=== PATIENT | male | born 1955 | race Caucasian/White ===

== ENCOUNTER 2017-10-22 06:17 | Observation (INO) | payer BC ==
[2017-10-15 15:26] LABS: BASOPHILS # (AUTO) 0.1 X10'3 (0-0.2); BASOPHILS % (AUTO) 0.8 % (0-1); EOSINOPHILS # (AUTO) 0.4 X10'3 (0-0.9); EOSINOPHILS % (AUTO) 4.5 % (0-6); LYMPHOCYTES # (AUTO) 2.9 X10'3 (1.1-4.8); LYMPHOCYTES % (AUTO) 33.4 % (21-51); MEAN CORPUSCULAR HEMOGLOBIN 31.8 PG (27.0-31.0); MEAN CORPUSCULAR HGB CONC 35.1 % (33.0-36.5); MEAN CORPUSCULAR VOLUME 90.6 FL (78-98); MEAN PLATELET VOLUME 8.6 FL (7.4-10.4); MONOCYTES # (AUTO) 0.7 X10'3 (0-0.9); MONOCYTES % (AUTO) 7.6 % (2-12); NEUTROPHILS # (AUTO) 4.6 X10'3 (1.8-7.7); NEUTROPHILS % (AUTO) 53.7 % (42-75); PRE OP HEMATOCRIT 42.1 % (42.0-52.0); PRE OP HEMOGLOBIN 14.8 g/dL (14.0-17.9); PRE OP PLATELET COUNT 258 X10'3 (140-440); RED BLOOD COUNT 4.64 X10'6 (4.70-6.10); RED CELL DISTRIBUTION WIDTH 13.8 % (11.5-14.5)
[2017-10-15 15:39] LABS: ALBUMIN/GLOBULIN RATIO 1.2 (1.1-1.5); ALKALINE PHOSPHATASE 56 IU/L (46-116); BLOOD UREA NITROGEN 15 MG/DL (7-18); CALCIUM 9.2 MG/DL (8.5-10.1); CHLORIDE 108 MMOL/L (99-107); PRE OP ALT 28 U/L (30-65); PRE OP ANION GAP 8 (8-16); PRE OP AST 26 U/L (10-37); PRE OP BILIRUB, TOTAL 0.3 MG/DL (0.0-1.0); PRE OP GLUCOSE 93 MG/DL (70-104); PRE OP SODIUM 144 MMOL/L (135-145); TOTAL CARBON DIOXIDE 27.8 MMOL/L (24-32); TOTAL PROTEIN 7.4 G/DL (6.4-8.2); eGFR 76 ML/MIN
[2017-10-15 15:40] LABS: PRE OP POTASSIUM 4.3 MMOL/L (3.4-5.1)
[2017-10-22] VITALS (17 sets, daily range): BP systolic 104–128; BP diastolic 67–90
[~2017-10-22] VITALS: Ht 170.2 cm; Wt 91.1 kg
[~2017-10-22 06:17] MED LIST: ASPI-611 PO; FENO145T19 PO; MELO-102 PO; METO-384 PO; PANT-47 PO; PARO20TA6 PO; acetaminophen 325mg tablet PO ONE; cefazolin/dext.iso 2gm/50ml 50 ML IV ONE; famotidine 20mg tablet PO ONE; gabapentin 300mg capsule PO ONE; metoclopramide 5 mg/ml inj IV ONE; oxyCODONE SR 10mg (sust. release) tab PO ONE; tranexamic acid inj. 1,000 MG in normal saline 100ml IV soln 90 ML IV ONE; vancomycin inj 1,500 MG in normal saline 300ml IV soln IV ONE
[2017-10-22] MEDS ORDERED: ketorolac trometh. 30mg/ml inj. ONE (07:53)
[2017-10-22] MEDS ORDERED: ceFAZolin 1000mg inj ONE (07:54)
[2017-10-22] MEDS ORDERED: ROPIVAcaine 0.5% (5mg/ml) 30ml vial ONE ×2 (07:54→10:55)
[2017-10-22] MEDS ORDERED: ePHEDrine 50MG/ML INJ. ONE (08:02)
[2017-10-22] MEDS ORDERED: LIDOcaine 1%/PF (10mg/ml) 5ml vial ONE (08:02)
[2017-10-22] MEDS ORDERED: phenylephrine 10mg/ml inj IV ONE (08:02)
[2017-10-22] MEDS ORDERED: LIDOcaine 1% (10mg/ml) 2ml vial ONE (08:02)
[2017-10-22] MEDS ORDERED: epiNEPHrine 1 mg/ml inj ONE (08:04)
[2017-10-22] MEDS ORDERED: fentaNYL/PF 50MCG/1 ML 2ML syringe ONE (08:05)
[2017-10-22] MEDS ORDERED: midazolam 2 mg/2 ml injection ONE (08:06)
[2017-10-22] MEDS ORDERED: MORPHINE SULFATE/PF 0.5 MG/ML 10ML AMPUL ONE ×2 (08:17→09:50)
[2017-10-22] MEDS ORDERED: desflurane 240ml liquid inh. IH ONE (08:40)
[2017-10-22] MEDS ORDERED: vancomycin 1,000mg inj ONE (10:17)
[2017-10-22] MEDS: potassium cl 20mEq in 1/2 NS 1,000 ML IV SCH ×2 (10:36→18:36)
[2017-10-22] MEDS ORDERED: acetaminophen 325mg tablet PO PRN (10:40)
[2017-10-22] MEDS ORDERED: magnesium hydroxide 30ml (MOM) UD suspension PO PRN (10:40)
[2017-10-22] MEDS ORDERED: bisacodyl 10mg suppository rectal RC PRN (10:40)
[2017-10-22] MEDS ORDERED: oxyCODONE IR 5mg (immed. release) tablet PO PRN (10:40)
[2017-10-22] MEDS ORDERED: diphenhydrAMINE 25mg capsule PO PRN ×2 (10:40)
[2017-10-22] MEDS ORDERED: ondansetron/PF 4mg/2ml inj IV PRN (10:40)
[2017-10-22] MEDS ORDERED: tranexamic acid inj. 1,000 MG in normal saline 100ml IV soln 100 ML IV ONE (13:00)
[2017-10-22] MEDS: gabapentin 300mg capsule PO SCH ×2 (14:38→23:23)
[2017-10-22] MEDS: acetaminophen 325mg tablet PO SCH ×2 (14:38→20:10)
[2017-10-22] MEDS: oxyCODONE IR 5mg (immed. release) tablet PO PRN ×3 (14:40→23:23)
[2017-10-22] MEDS: cefazolin 1gm/NS 100mL 100 ML IV SCH (16:45)
[2017-10-22] MEDS ORDERED: vancomycin/NS 1 GM ADD-VANTAGE 250 ML IV SCH (20:00)
[2017-10-22] MEDS: celeCOXIB 100mg capsule PO SCH (20:09)
[2017-10-22] MEDS ORDERED: sennosides 8.6mg tablet PO SCH (21:00)
[2017-10-23] MEDS: cefazolin 1gm/NS 100mL 100 ML IV SCH (00:16)
[2017-10-23] MEDS: potassium cl 20mEq in 1/2 NS 1,000 ML IV SCH (00:17)
[2017-10-23 02:00] VITALS: BP 107/73
[2017-10-23] MEDS: acetaminophen 325mg tablet PO SCH ×2 (03:12→08:46)
[2017-10-23] MEDS: oxyCODONE IR 5mg (immed. release) tablet PO PRN ×2 (03:12→07:50)
[2017-10-23 05:00] VITALS: BP 123/77
[2017-10-23] MEDS ORDERED: pantoprazole 40mg Tablet.DR PO SCH (07:30)
[2017-10-23] MEDS ORDERED: PARoxetine 20mg tablet PO SCH (08:00)
[2017-10-23] MEDS ORDERED: metoprolol succinate 25mg (24-HOUR) SR. Tablet PO SCH (08:00)
[2017-10-23] MEDS: gabapentin 300mg capsule PO SCH ×2 (08:00→08:48)
[2017-10-23] MEDS ORDERED: fenofibrate 145mg tablet PO SCH (08:30)
[2017-10-23] MEDS: celeCOXIB 100mg capsule PO SCH (08:44)
[2017-10-23] MEDS ORDERED: enoxaparin 40mg/0.4ml syringe SQ SCH (10:00)
[2017-10-23 10:12] VITALS: BP 124/78
[2017-10-24] MEDS ORDERED: acetaminophen 325mg tablet PO PRN (10:40)
== END 2017-10-23 10:45 | disposition home or self-care (01) ==
LOC: INTOOBSV 06:17 → PAS IN 06:17 → UNDOADMOB 06:17 → EDSTATUS 08:30 → PAS IN 10:36 → ORTHO 4S 11:58
PROVIDERS: ADMIT Orthopaedic Surgery; ATTEND Orthopaedic Surgery
DX: M17.11 Unilateral primary osteoarthritis, right knee (principal); E78.5 Hyperlipidemia, unspecified; G47.30 Sleep apnea, unspecified; F32.9 Major depressive disorder, single episode, unspecified; K21.9 Gastro-esophageal reflux disease without esophagitis
CPT/HCPCS: 27446; 36415; 80053; 85025; 87070; 93005; 96365; 96366; 96367; 96372; 96375; 97110; 97116; 97161; 97530; A6255; C1713; C1758; C1776; C9250; G0378; J0171; J0690; J1650; J1885; J2001; J2250; J2274; J2370; J2765; J2795; J3010; J3370; J3490; J7030; J7120; S2900; A7000

== ENCOUNTER 2021-01-24 05:55 | Day surgery (SDC) | payer BC ==
[2021-01-17 15:47] LABS: CLARITY,URINE CLEAR (Clear); GLUCOSE, URINE NEGATIVE (Neg); KETONES,URINE NEGATIVE (Neg); LEUKOCYTE ESTERASE ,URINE NEGATIVE (Neg); NITRITES, URINE NEGATIVE (Neg); OCCULT BLOOD,URINE NEGATIVE (Neg); PROTEIN,URINE NEGATIVE (Neg); UROBILINOGEN,URINE 0.2 E.U/dL (0.2-1.0)
[2021-01-17 15:51] LABS: COLOR,URINE DARK YELLOW (Yellow); UA COLLECTION TYPE CLN CATCH MIDSTREAM
[2021-01-17 16:23] LABS: BASOPHILS # (AUTO) 0.1 X10'3 (0-0.2); BASOPHILS % (AUTO) 0.8 % (0-1); EOSINOPHILS # (AUTO) 0.4 X10'3 (0-0.9); EOSINOPHILS % (AUTO) 4.9 % (0-6); LYMPHOCYTES # (AUTO) 2.5 X10'3 (1.1-4.8); LYMPHOCYTES % (AUTO) 34.3 % (21-51); MEAN CORPUSCULAR HEMOGLOBIN 31.7 PG (27.0-31.0); MEAN CORPUSCULAR HGB CONC 33.4 g/dL (33.0-36.5); MEAN CORPUSCULAR VOLUME 94.9 FL (78-98); MEAN PLATELET VOLUME 8.9 FL (7.4-10.4); MONOCYTES # (AUTO) 0.7 X10'3 (0-0.9); NEUTROPHILS # (AUTO) 3.6 X10'3 (1.8-7.7); PRE OP HEMATOCRIT 43.3 % (42.0-52.0); PRE OP HEMOGLOBIN 14.4 g/dL (14.0-17.9); PRE OP PLATELET COUNT 290 X10'3 (140-440); RED BLOOD COUNT 4.56 X10'6 (4.70-6.10); RED CELL DISTRIBUTION WIDTH 14.3 % (11.5-14.5)
[2021-01-17 16:33] LABS: ALBUMIN 3.8 G/DL (3.4-5.0); ALBUMIN/GLOBULIN RATIO 1.1 (1.1-1.5); ALKALINE PHOSPHATASE 80 IU/L (46-116); BLOOD UREA NITROGEN 19 MG/DL (7-18); BUN/CREATININE RATIO 20.2 (5.4-32.0); CALCIUM 9.1 MG/DL (8.5-10.1); CHLORIDE 105 MMOL/L (99-107); CREATININE 0.94 MG/DL (0.60-1.10); PRE OP ALT 33 U/L (30-65); PRE OP ANION GAP 12 (8-16); PRE OP AST 24 U/L (10-37); PRE OP BILIRUB, TOTAL 0.4 MG/DL (0.0-1.0); PRE OP GLUCOSE 76 MG/DL (70-104); PRE OP POTASSIUM 3.9 MMOL/L (3.4-5.1); PRE OP SODIUM 143 MMOL/L (135-145); TOTAL CARBON DIOXIDE 26.2 MMOL/L (24-32); TOTAL PROTEIN 7.4 G/DL (6.4-8.2); eGFR 81 ML/MIN
[~2021-01-24] VITALS: Ht 170.2 cm; Wt 87.0 kg
[2021-01-24] VITALS (9 sets, daily range): BP systolic 99–133; BP diastolic 65–91
[~2021-01-24 05:55] MED LIST changes: +ASPI-1265 PO; -ASPI-611 PO; +ATOR10TA PO; +DOCUMENT DATE & TIME OF BETA-BLOCKER PO ONE; -FENO145T19 PO; -acetaminophen 325mg tablet PO ONE; +cefazolin/dext.iso 2gm/100ml IV ONE; -cefazolin/dext.iso 2gm/50ml 50 ML IV ONE; -gabapentin 300mg capsule PO ONE; -metoclopramide 5 mg/ml inj IV ONE; -oxyCODONE SR 10mg (sust. release) tab PO ONE; +ringers solution, lacted 1,000 ML IV SCH; -tranexamic acid inj. 1,000 MG in normal saline 100ml IV soln 90 ML IV ONE; -vancomycin inj 1,500 MG in normal saline 300ml IV soln IV ONE
[2021-01-24] MEDS ORDERED: LIDOcaine 1% (10mg/ml) 2ml vial ONE (06:46)
[2021-01-24] MEDS ORDERED: albuterol 2.5 MG/3 ML nebule NEB ONE (07:10)
[2021-01-24] MEDS ORDERED: BUPIVAcaine/PF 2.5mg/ml (0.25%) 10ml vial ONE (08:42)
[2021-01-24] MEDS ORDERED: fentaNYL/PF 50MCG/1 ML 2ML syringe ONE ×2 (09:03→10:06)
[2021-01-24] MEDS ORDERED: midazolam 1 mg/ML 2ml injection ONE (09:03)
[2021-01-24] MEDS ORDERED: rocuronium 10mg/ml inj IV ONE (09:05)
[2021-01-24] MEDS ORDERED: LIDOcaine 2% (20mg/ml) 5ml vial ONE (09:05)
[2021-01-24] MEDS ORDERED: propofol inj 20 ML IV ONE (09:05)
[2021-01-24] MEDS ORDERED: meperidine/PF 25mg/ml syringe IV PRN ×2 (09:35)
[2021-01-24] MEDS ORDERED: morphine 4 MG/ML inj SYRINge IV PRN (09:35)
[2021-01-24] MEDS ORDERED: morphine 2 MG/ML inj. syringe IV PRN (09:35)
[2021-01-24] MEDS ORDERED: ondansetron/PF 4mg/2ml inj IV PRN (09:35)
[2021-01-24] MEDS ORDERED: ringers solution, lacted 1,000 ML IV SCH (09:35)
[2021-01-24] MEDS ORDERED: proCHLORperazine 10 MG/2 ml inj IV PRN (09:35)
[2021-01-24] MEDS ORDERED: dexamethasone sod phosphate 10mg/ml inj ONE (09:39)
[2021-01-24] MEDS ORDERED: neostigmine methylsulfate 1 MG/ML 10ml vial ONE (09:39)
[2021-01-24] MEDS ORDERED: ondansetron/PF 4mg/2ml inj ONE (09:39)
[2021-01-24] MEDS ORDERED: glycopyrrolate 0.2mg/ml inj ONE (09:39)
[2021-01-24] MEDS ORDERED: acetaminophen 1000 MG/100ml vial IV ONE (09:39)
[2021-01-24] MEDS ORDERED: ePHEDrine 50MG/ML INJ. ONE (09:39)
[2021-01-24] MEDS ORDERED: sevoflurane 250ml liquid IH ONE (09:39)
--- NOTE | 2021-01-24 10:50 | NUR ---
Received from OR via [facility], accompanied by Anesthesiologist Junior and report given by Anesthesiolgist. VS WNL, 200G IVF LR at 100cc/hr. Mask to 10L sats 98%. Lap sites with dermabond open to air all CDI except one to lateral left abdomen slighlty oozy, bandiad applied. Pt responsive but not yet fully awake, claims no pain.
[2021-01-24] MEDS: meperidine/PF 25mg/ml syringe IV PRN ×2 (11:19→11:29)
[2021-01-24] MEDS ORDERED: HYDROcodone/acetaminophen 10/325mg tab PO ONE (11:30)
--- NOTE | 2021-01-24 12:10 | NUR ---
Pt discharged to vehicle by wheelchair without incident, at bedside. IV DC'd and lap sites remain CDI. Belongings returned to patient, and patient verbalized understanding of all DC instructions. Pain tolerable at 3/10 states tolerable. Call was made to Dr Dooley's office to request meds be called in to [facility] in [place] because [facility] in [place]. Confirmed and relayed to family.
== END 2021-01-24 12:10 | disposition home or self-care (01) ==
LOC: PAS 05:55
PROVIDERS: ATTEND Surgery
DX: K42.0 Umbilical hernia with obstruction, without gangrene (principal); I10 Essential (primary) hypertension; K21.9 Gastro-esophageal reflux disease without esophagitis; E78.5 Hyperlipidemia, unspecified; F43.23 Adjustment disorder with mixed anxiety and depressed mood; G47.33 Obstructive sleep apnea (adult) (pediatric); M19.90 Unspecified osteoarthritis, unspecified site; F17.210 Nicotine dependence, cigarettes, uncomplicated; E66.9 Obesity, unspecified; Z68.30 Body mass index [BMI] 30.0-30.9, adult; Z98.890 Other specified postprocedural states; Z79.899 Other long term (current) drug therapy; Z96.659 Presence of unspecified artificial knee joint; Z88.5 Allergy status to narcotic agent; Z83.3 Family history of diabetes mellitus
CPT/HCPCS: 36415; 49653; 71046; 80053; 81003; 82948; 85025; 93005; 94640; C1758; C1781; J0131; J1100; J2001; J2175; J2250; J2405; J2704; J2710; J3010; J3490; S2900; A4215; A4618; J7120

== ENCOUNTER 2021-02-02 12:01 | Emergency (ER) | payer BC, OTHER ==
[~2021-02-02] VITALS: Ht 170.2 cm; Wt 72.8 kg
[~2021-02-02 12:01] MED LIST changes: -DOCUMENT DATE & TIME OF BETA-BLOCKER PO ONE; -cefazolin/dext.iso 2gm/100ml IV ONE; -famotidine 20mg tablet PO ONE; -ringers solution, lacted 1,000 ML IV SCH
--- NOTE | 2021-02-02 12:08 | NUR ---
PT FOUND IN LOBBY ON THE GROUND YELLING, PT PUT IN W/C. CN MADE AWARE.
[2021-02-02] MEDS ORDERED: ondansetron/PF 4mg/2ml inj IV ONE (12:50)
[2021-02-02] MEDS ORDERED: pantoprazole 40 MG vial IV ONE (12:50)
[2021-02-02] MEDS ORDERED: normal saline 1000ML IV soln IVB ONE ×3 (12:50→15:35)
[2021-02-02 13:23] LABS: BASOPHILS # (AUTO) 0.1 X10'3 (0-0.2); BASOPHILS % (AUTO) 0.6 % (0-1); EOSINOPHILS # (AUTO) 0.1 X10'3 (0-0.9); EOSINOPHILS % (AUTO) 0.7 % (0-6); HEMATOCRIT 43.7 % (42.0-52.0); HEMOGLOBIN 14.7 g/dl (14.0-17.9); LYMPHOCYTES # (AUTO) 1.7 X10'3 (1.1-4.8); LYMPHOCYTES % (AUTO) 11.7 % (21-51); MEAN CORPUSCULAR HEMOGLOBIN 31.5 PG (27.0-31.0); MEAN CORPUSCULAR HGB CONC 33.6 g/dL (33.0-36.5); MEAN CORPUSCULAR VOLUME 93.9 FL (78-98); MEAN PLATELET VOLUME 8.2 FL (7.4-10.4); MONOCYTES # (AUTO) 0.7 X10'3 (0-0.9); MONOCYTES % (AUTO) 4.6 % (2-12); NEUTROPHILS # (AUTO) 11.8 X10'3 (1.8-7.7); NEUTROPHILS % (AUTO) 82.4 % (42-75); PLATELET COUNT 362 X10'3 (140-440); RED BLOOD COUNT 4.66 X10'6 (4.70-6.10); RED CELL DISTRIBUTION WIDTH 14.1 % (11.5-14.5); WHITE BLOOD COUNT 14.3 X10'3 (4.5-11.0)
[2021-02-02 13:35] LABS: ALANINE AMINOTRANSFERASE 35 U/L (12-78); ALBUMIN 3.7 G/DL (3.4-5.0); ALBUMIN/GLOBULIN RATIO 0.9 (1.1-1.5); ALKALINE PHOSPHATASE 118 IU/L (46-116); ANION GAP 18 (8-16); ASPARTATE AMINO TRANSFERASE 21 U/L (10-37); BILIRUBIN,TOTAL 0.6 MG/DL (0.1-1.0); BLOOD UREA NITROGEN 15 MG/DL (7-18); BUN/CREATININE RATIO 14.9 (5.4-32.0); CALCIUM 9.8 MG/DL (8.5-10.1); CHLORIDE 105 MMOL/L (99-107); CREATININE 1.01 MG/DL (0.60-1.10); GLUCOSE 147 MG/DL (70-104); LIPASE 99 U/L (73-393); POTASSIUM 3.8 MMOL/L (3.5-5.1); SODIUM 141 MMOL/L (135-145); TOTAL CARBON DIOXIDE 18.3 MMOL/L (24-32); TOTAL PROTEIN 7.7 G/DL (6.4-8.2); eGFR 74 ML/MIN
[2021-02-02] MEDS ORDERED: LORazepam 2 mg/ml vial IV ONE (13:35)
[2021-02-02] MEDS ORDERED: morphine 4 MG/ML inj SYRINge IV ONE (13:35)
[2021-02-02] MEDS ORDERED: iohexol 300mg/ml 100ml inj. ONE (14:02)
[2021-02-02] MEDS ORDERED: ketorolac tromethamine 15mg/ml inj. IV ONE (14:25)
[2021-02-02 15:08] VITALS: BP 127/93
[2021-02-02] MEDS ORDERED: HYDR-3965 PO (16:52)
== END 2021-02-02 17:05 | disposition home or self-care (01) ==
LOC: ER 12:02
DX: R10.12 Left upper quadrant pain (principal); R10.11 Right upper quadrant pain; R11.10 Vomiting, unspecified; R19.7 Diarrhea, unspecified; E78.00 Pure hypercholesterolemia, unspecified; I10 Essential (primary) hypertension; K21.9 Gastro-esophageal reflux disease without esophagitis; G89.29 Other chronic pain; Z98.890 Other specified postprocedural states; Z88.5 Allergy status to narcotic agent; Z79.82 Long term (current) use of aspirin; Z79.899 Other long term (current) drug therapy
CPT/HCPCS: 36415; 71045; 74177; 76700; 80053; 83605; 83690; 84145; 85025; 93005; 96374; 96375; 99285; C9113; J1885; J2060; J2270; J2405; J7030; Q9967

== ENCOUNTER 2022-02-13 05:21 | Day surgery (SDC) | payer OTHER, MEDICARE ==
[2022-02-04 12:27] LABS: BASOPHILS # (AUTO) 0.1 X10'3 (0-0.2); BASOPHILS % (AUTO) 0.8 % (0-1); EOSINOPHILS # (AUTO) 0.4 X10'3 (0-0.9); EOSINOPHILS % (AUTO) 5.2 % (0-6); LYMPHOCYTES # (AUTO) 2.5 X10'3 (1.1-4.8); MEAN CORPUSCULAR HEMOGLOBIN 30.7 PG (27.0-31.0); MEAN CORPUSCULAR HGB CONC 32.8 g/dL (33.0-36.5); MEAN CORPUSCULAR VOLUME 93.6 FL (78-98); MEAN PLATELET VOLUME 8.7 FL (7.4-10.4); MONOCYTES # (AUTO) 0.7 X10'3 (0-0.9); MONOCYTES % (AUTO) 9.3 % (2-12); NEUTROPHILS # (AUTO) 3.7 X10'3 (1.8-7.7); NEUTROPHILS % (AUTO) 50.7 % (42-75); PRE OP HEMATOCRIT 42.5 % (42.0-52.0); PRE OP PLATELET COUNT 227 X10'3 (140-440); RED BLOOD COUNT 4.54 X10'6 (4.70-6.10); RED CELL DISTRIBUTION WIDTH 13.8 % (11.5-14.5)
[2022-02-04 12:45] LABS: ALBUMIN 3.4 G/DL (3.4-5.0); ALBUMIN/GLOBULIN RATIO 1.1 (1.1-1.5); ALKALINE PHOSPHATASE 108 IU/L (46-116); BLOOD UREA NITROGEN 12 MG/DL (7-18); BUN/CREATININE RATIO 14.3 (5.4-32.0); CALCIUM 8.7 MG/DL (8.5-10.1); CHLORIDE 109 MMOL/L (99-107); CREATININE 0.84 MG/DL (0.60-1.10); PRE OP ALT 36 U/L (30-65); PRE OP ANION GAP 9 (8-16); PRE OP AST 19 U/L (10-37); PRE OP BILIRUB, TOTAL 0.3 MG/DL (0.0-1.0); PRE OP GLUCOSE 116 MG/DL (70-104); PRE OP POTASSIUM 4.4 MMOL/L (3.4-5.1); PRE OP SODIUM 144 MMOL/L (135-145); TOTAL CARBON DIOXIDE 25.9 MMOL/L (24-32); TOTAL PROTEIN 6.6 G/DL (6.4-8.2); eGFR > 90 ML/MIN
[~2022-02-13] VITALS: Ht 170.2 cm; Wt 81.7 kg
[2022-02-13] VITALS (33 sets, daily range): BP systolic 87–132; BP diastolic 59–95
[~2022-02-13 05:21] MED LIST changes: -ASPI-1265 PO; -MELO-102 PO; -PANT-47 PO; +ringers solution, lacted 1,000 ML IV SCH
[2022-02-13] MEDS ORDERED: tranexamic acid inj. 1,000 MG in 0.7% saline 100 ML PMX IV ONE (05:30)
[2022-02-13] MEDS ORDERED: vancomycin 1,500 MG in NS 300ml IV soln IV ONE (05:30)
[2022-02-13] MEDS ORDERED: DOCUMENT DATE & TIME OF BETA-BLOCKER PO ONE (05:30)
[2022-02-13] MEDS ORDERED: ceFAZolin inj. 2,000 MG in dextrose 5%-water 100 ML IV ONE (05:30)
[2022-02-13] MEDS ORDERED: famotidine 20mg tablet PO ONE (05:30)
--- NOTE | 2022-02-13 06:25 | NUR ---
CSMS INTACT AND RADIAL PULSE STRONG TO RIGHT ARM. PT STATES HE SHOWERED X 5 WITH HIBICLENS AND USED MUPIROCIN OINT BID X 5 DAYS. PT STATES HE WAS GIVEN A SHOULDER BOOKLET WAS ABLE TO READ IT AND DENIES ANY QUESTIONS PT LAST TOOK METOPROLOL 02/13/22 @ 0300.
[2022-02-13] MEDS ORDERED: vancomycin 1,000mg inj ONE (07:05)
[2022-02-13] MEDS ORDERED: midazolam 1 mg/ML 2ml injection ONE (07:20)
[2022-02-13] MEDS ORDERED: fentaNYL/PF 50MCG/1 ML 2ML syringe ONE ×2 (07:20→09:12)
[2022-02-13] MEDS ORDERED: rocuronium 10mg/ml inj IV ONE (07:21)
[2022-02-13] MEDS ORDERED: propofol inj 20 ML IV ONE (07:21)
[2022-02-13] MEDS ORDERED: ROPIVAcaine 0.5% (5mg/ml) 30ml vial ONE ×2 (07:30→11:09)
[2022-02-13] MEDS ORDERED: sevoflurane 250ml liquid IH ONE (08:06)
[2022-02-13] MEDS ORDERED: ROPIVAcaine 0.2% (10 MG/5 ML) BOLUS INJECTION INTERSCALE PRN (08:55)
[2022-02-13] MEDS ORDERED: meperidine/PF 25mg/ml syringe IV PRN (08:55)
[2022-02-13] MEDS ORDERED: ondansetron/PF 4mg/2ml inj IV PRN ×2 (08:55→10:55)
[2022-02-13] MEDS ORDERED: morphine 2 MG/ML inj. syringe IV PRN (08:55)
[2022-02-13] MEDS ORDERED: ringers solution, lacted 1,000 ML IV SCH (08:55)
[2022-02-13] MEDS ORDERED: ROPIVAcaine 0.2%/PF PUMP/bolus 545 ML INTERSCALE SCH (08:55)
[2022-02-13] MEDS ORDERED: glycopyrrolate 0.2mg/ml inj ONE ×2 (09:42→10:12)
[2022-02-13] MEDS ORDERED: neostigmine methylsulfate 1 MG/ML 10ml vial ONE ×2 (09:42→10:12)
[2022-02-13] MEDS ORDERED: dexamethasone sod phosphate 4mg/ml inj. ONE (09:42)
[2022-02-13] MEDS ORDERED: ePHEDrine 50MG/ML INJ. ONE (09:42)
[2022-02-13] MEDS ORDERED: ondansetron/PF 4mg/2ml inj ONE (09:42)
[2022-02-13] MEDS ORDERED: labetalol 20mg/4ml (5mg/ml) syringe IV ONE (10:12)
[2022-02-13] MEDS ORDERED: acetaminophen 1,000mg/100ml IV 100 ML IV ONE (10:12)
[2022-02-13] MEDS ORDERED: meperidine/PF 25mg/ml syringe ONE (10:21)
--- NOTE | 2022-02-13 10:28 | NUR ---
Received from OR via HOSPITAL BED, accompanied by Anesthesiologist DR BENDER and report given by Anesthesiolgist. PT PRESNTS WITH PIV 18G LEFT HAND, RIGHT SHOULDER WRAP WITH POWDER PACK, SLING AND ON-Q READY. VSS. Addendum: 02/13/22 at 1055 by Makayla Traore RN, RN Amended: Links added.
[2022-02-13] MEDS ORDERED: diphenhydrAMINE 25mg capsule PO PRN ×2 (10:55)
[2022-02-13] MEDS ORDERED: bisacodyl 10mg suppository rectal RC PRN (10:55)
[2022-02-13] MEDS ORDERED: HYDROmorphone 1 mg/ml syringe IV PRN (10:55)
[2022-02-13] MEDS ORDERED: acetaminophen 325mg tablet PO PRN (10:55)
[2022-02-13] MEDS ORDERED: naloxone 0.4 mg/ml inj IV PRN (10:55)
[2022-02-13] MEDS ORDERED: oxyCODONE IR 5mg (immed. release) tablet PO PRN ×2 (10:55)
[2022-02-13] MEDS ORDERED: magnesium hydroxide 30ml (MOM) UD suspension PO PRN (10:55)
[2022-02-13] MEDS ORDERED: HYDROmorphone inj. 0.5 MG/0.5 ML DISP.SYRIN IV PRN (10:55)
[2022-02-13] MEDS: meperidine/PF 25mg/ml syringe IV PRN ×2 (10:57→11:00)
[2022-02-13] MEDS: morphine 4 MG/ML inj SYRINge IV PRN ×2 (11:03→11:09)
--- NOTE | 2022-02-13 11:59 | NUR ---
DR BENDER AT BEDSIDE TO REDO INTERSCALINE DARIUS, PER DR BENDER OVERRIDE VERSED FOR PROCEDURE. Addendum: 02/13/22 at 1202 by Makayla Traore RN RN Amended: Links added.
--- NOTE | 2022-02-13 12:50 | NUR ---
PT'S , CHRISTOPHER WILKINS . UPDATED ON PT. Addendum: 02/13/22 at 1258 by Makayla Traore RN RN Amended: Links added.
[2022-02-13] MEDS ORDERED: tranexamic acid inj. 1,000 MG in normal saline 100ml IV soln 100 ML IV ONE (14:00)
--- NOTE | 2022-02-13 14:03 | NUR ---
PT'S AT BEDSIDE FOR A SHORT VISIT UNTIL PT GETS A ROOM ASSIGNMENT. Addendum: 02/13/22 at 1403 by Makayla Traore RN, RN Amended: Links added.
[2022-02-13] MEDS: acetaminophen 325mg tablet PO SCH ×2 (14:20→21:27)
[2022-02-13] MEDS: gabapentin 300mg capsule PO SCH ×2 (14:20→21:28)
[2022-02-13] MEDS: potassium cl 20mEq in 1/2 NS 1,000 ML IV SCH ×2 (17:13→18:55)
--- NOTE | 2022-02-13 17:48 | NUR ---
Report called to receiving nurse ROGER GASPAR. Transferred via HOSPITAL BED WITH 1 PT Belongings BAG AND C-PAP TO ROOM [facility]0A. BED IN LOW LOCKED POSITION WITH CALL LIGHT IN REACH. Special Issues communicated to receiving nurse. Addendum: 02/13/22 at 1834 by Makayla Traore RN RN Amended: Links added.
--- NOTE | 2022-02-13 18:40 | NUR ---
Received from PACU via HOSPITAL BED , accompanied by INDUSTRIAL CHEMISTRY TEACHER. PT PRESENTS WITH 20G LEFT AC, RIGHT KNEE WRAP WITH ON-Q AND POWDER PACK, DRESSING CDI, VSS, ALERT AND ORIENTED, ORDERED DINNER AND GAVE PATIENT WATER. AND MOVED HIM TO "B" BED.
--- NOTE | 2022-02-13 18:50 | NUR ---
Problems reprioritized. Patient report given, questions answered & plan of care reviewed with CHASITY Mayo.
[2022-02-13] MEDS ORDERED: atorvastatin 10mg tablet PO SCH (21:00)
[2022-02-13] MEDS ORDERED: sennosides 8.6mg tablet PO SCH (21:00)
[2022-02-14] MEDS: potassium cl 20mEq in 1/2 NS 1,000 ML IV SCH (00:35)
[2022-02-14 02:02] VITALS: BP 112/76
[2022-02-14] MEDS: acetaminophen 325mg tablet PO SCH ×2 (02:20→07:39)
--- NOTE | 2022-02-14 06:18 | NUR ---
reported to days. noted pt has pillow under shoulder. anticipates discharge today
--- NOTE | 2022-02-14 06:28 | NUR ---
Patient in room [facility]TH[facility] 4010. I have received report from tyler kimball and had the opportunity to ask questions and assume patient care.
[2022-02-14 06:29] VITALS: BP 136/70
[2022-02-14] MEDS: gabapentin 300mg capsule PO SCH (07:38)
[2022-02-14] MEDS ORDERED: PARoxetine 20mg tablet PO SCH (08:00)
[2022-02-14] MEDS ORDERED: metoprolol succinate 25mg (24-HOUR) SR. Tablet PO SCH (08:00)
[2022-02-14] MEDS ORDERED: aspirin 325mg tablet PO SCH (08:30)
[2022-02-14 10:00] VITALS: BP 134/80
--- NOTE | 2022-02-14 13:00 | NUR ---
pt dc'd home with family, verbalized understanding dc instructions, no questions, already has appt with Dr Orlando, IV dc'd cannula intact
[2022-02-14] MEDS ORDERED: celeCOXIB 100mg capsule PO SCH (20:00)
[2022-02-15] MEDS ORDERED: acetaminophen 325mg tablet PO PRN (10:55)
== END 2022-02-14 13:00 | disposition home or self-care (01) ==
LOC: PAS 05:21 → ORTHO 4S 19:45 → PAS 02-14 13:00
PROVIDERS: ATTEND Orthopaedic Surgery
DX: M19.011 Primary osteoarthritis, right shoulder (principal); G47.33 Obstructive sleep apnea (adult) (pediatric); F32.A Depression, unspecified; K21.9 Gastro-esophageal reflux disease without esophagitis; I10 Essential (primary) hypertension; Z88.5 Allergy status to narcotic agent; Z96.653 Presence of artificial knee joint, bilateral; Z87.891 Personal history of nicotine dependence; Z79.899 Other long term (current) drug therapy
CPT/HCPCS: 23472; 36415; 64416; 73020; 76942; 80053; 82948; 85025; 87081; 97110; 97161; 97530; C1713; C1776; J0131; J0690; J1100; J2175; J2250; J2270; J2405; J2704; J2710; J2795; J3010; J3370; J3480; J3490; J7030; J7040; J7060; J7120; Z7506; Z7508; Z7512; A4565; A4618; A7000; C9250; G0378